=== PATIENT | male | born 1955 | race Caucasian/White ===

== ENCOUNTER 2019-04-16 09:50 | Day surgery (SDC) | payer BC ==
[2019-04-16] VITALS (8 sets, daily range): BP systolic 112–135; BP diastolic 63–84
[~2019-04-16] VITALS: Ht 175.3 cm; Wt 78.0 kg
[~2019-04-16 09:50] MED LIST: AMIO200T27 PO; APIX2.5T PO; ATOR20TA66 PO; CARV-50 PO; CLOP75TA33 PO; ENAL20TA PO; FLO0.4C PO; MAGN400C PO; METF-436 PO; METF-438 PO; POTA-82 PO
[2019-04-16] MEDS ORDERED: fentaNYL/PF 50MCG/1 ML 2ML syringe IV ONE (10:25)
[2019-04-16] MEDS ORDERED: normal saline 1000ml 1,000 ML IV SCH (10:25)
[2019-04-16] MEDS ORDERED: MIDAZolam 1mg/ml 10ml vial IV ONE (10:25)
[2019-04-16] MEDS ORDERED: METF-951 PO (11:27)
[2019-04-16] MEDS ORDERED: AMLO5TAB PO (11:30)
== END 2019-04-16 13:00 | disposition home or self-care (01) ==
LOC: SSTAY O 09:50
PROVIDERS: ATTEND Internal Medicine Interventional Cardiology
DX: I48.0 Paroxysmal atrial fibrillation (principal); I25.10 Atherosclerotic heart disease of native coronary artery without angina pectoris; I10 Essential (primary) hypertension; I25.5 Ischemic cardiomyopathy; E11.59 Type 2 diabetes mellitus with other circulatory complications; I35.1 Nonrheumatic aortic (valve) insufficiency; Z95.5 Presence of coronary angioplasty implant and graft; Z79.01 Long term (current) use of anticoagulants; Z79.899 Other long term (current) drug therapy
CPT/HCPCS: 82948; 92960; 93005; J2250; J3010; J7030

== ENCOUNTER 2023-02-13 10:40 | Day surgery (SDC) | payer BC ==
[2023-02-13] VITALS (10 sets, daily range): BP systolic 113–141; BP diastolic 67–115
[~2023-02-13] VITALS: Ht 175.3 cm; Wt 74.8 kg
[~2023-02-13 10:40] MED LIST changes: -AMIO200T27 PO; +AMLO5TAB PO; +ENAL-79 PO; -ENAL20TA PO; +METF-1157 PO; -METF-436 PO; -METF-438 PO; -POTA-82 PO
[2023-02-13] MEDS ORDERED: normal saline 1,000 ML IV SCH (11:15)
[2023-02-13] MEDS ORDERED: diphenhydrAMINE 25mg capsule PO PRN (11:15)
[2023-02-13] MEDS ORDERED: APIX5TAB3 PO (11:15)
[2023-02-13] MEDS ORDERED: LORazepam 0.5 MG tablet PO PRN (11:15)
[2023-02-13] MEDS ORDERED: BISO10TA16 PO (11:16)
[2023-02-13] MEDS ORDERED: EMPA10TA PO (11:16)
[2023-02-13] MEDS ORDERED: SACU1TAB PO (11:16)
[2023-02-13] MEDS ORDERED: fentaNYL/PF 50MCG/1 ML 2ML syringe ONE (12:17)
[2023-02-13] MEDS ORDERED: LIDOcaine 1% (10mg/ml) 2ml vial ONE (12:17)
[2023-02-13] MEDS ORDERED: verapamil 2.5 mg/ml inj IV ONE (12:17)
[2023-02-13] MEDS ORDERED: midazolam 1 mg/ML 2ml injection ONE (12:17)
[2023-02-13] MEDS ORDERED: iohexol 350MG/ML 100ml bottle IV ONE (12:18)
[2023-02-13] MEDS ORDERED: heparin 1,000 UNITS/NS 500ml 500 ML ONE ×2 (12:18)
[2023-02-13] MEDS ORDERED: heparin 1,000unit/ml 10ml vial 10 ML ONE (12:18)
[2023-02-13] MEDS ORDERED: nitroGLYCERIN-Tridil 50MG/D5W 250 ML IV ONE (12:18)
[2023-02-13] MEDS ORDERED: DOBUTamine-DoBUTrex 500mg/D5W 0 ML IV ONE (13:14)
[2023-02-13] MEDS ORDERED: LIDOcaine 1% 30ml preserv. free vial ONE (13:16)
[2023-02-13] MEDS ORDERED: HYDROcodone/acetaminophen 10/325mg tab PO PRN (14:30)
[2023-02-13] MEDS ORDERED: HYDROcodone/acetaminophen 5mg/325mg tablet PO PRN (14:30)
--- NOTE | 2023-02-13 15:30 | NUR ---
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 Notified credit risk analyst, Dr. Danyelle Eldridge and stroke alert initiated.
--- NOTE | 2023-02-13 16:30 | NUR ---
Discussed neurologist recommendations with Dr. Eldridge and informed him of patient current agitation and wish to go home. Ordered aspirin 325mg now and starting tomorrow restart his Eliquis and (81mg of aspirin daily for 21 days). Follow up with his primary physician about out patient MRI and may be discharged today.
[2023-02-13] MEDS ORDERED: aspirin 325mg tablet PO ONE (16:45)
== END 2023-02-13 17:00 | disposition home or self-care (01) ==
LOC: SSTAY O 10:40
PROVIDERS: ATTEND Student in an Organized Health Care Education/Training Program
DX: R94.39 Abnormal result of other cardiovascular function study (principal); I25.10 Atherosclerotic heart disease of native coronary artery without angina pectoris; I35.0 Nonrheumatic aortic (valve) stenosis; E78.5 Hyperlipidemia, unspecified; R47.81 Slurred speech; E11.9 Type 2 diabetes mellitus without complications; I48.91 Unspecified atrial fibrillation; I50.9 Heart failure, unspecified; I11.0 Hypertensive heart disease with heart failure
CPT/HCPCS: 70450; 82948; 93005; 93458; 99152; 99153; C1760; C1894; J1644; J2250; J3010; J3490; J7030; Q0163; Q9967; A6258; C1751; J1250

== ENCOUNTER 2024-05-07 08:56 | Day surgery (SDC) | payer BC ==
[~2024-05-07] VITALS: Ht 175.3 cm; Wt 74.4 kg
[2024-05-07] VITALS (17 sets, daily range): BP systolic 107–156; BP diastolic 54–107; PULSE 54–92; RESP 10–12; TEMP 97.6; O2SAT 95–100
[~2024-05-07 08:56] MED LIST changes: -AMLO5TAB PO; -APIX2.5T PO; +APIX5TAB3 PO; +BISO10TA16 PO; -CARV-50 PO; -CLOP75TA33 PO; +EMPA10TA PO; -ENAL-79 PO; +SACU1TAB PO
[2024-05-07] MEDS ORDERED: nitroGLYCERIN 0.4mg SUBLingual tab SL PRN ×2 (09:35)
[2024-05-07] MEDS ORDERED: metoprolol tartrate 1mg/ml inj IV PRN ×2 (09:35)
[2024-05-07] MEDS ORDERED: normal saline 500ml IV soln 500 ML IV SCH ×2 (09:35)
[2024-05-07] MEDS ORDERED: DOBUTamine-DoBUTrex 500mg/D5W 250 ML IV SCH (09:35)
[2024-05-07] MEDS ORDERED: atropine 0.1mg/ml 10ml syringe IV PRN ×2 (09:35)
[2024-05-07] MEDS: normal saline 1000ml 1,000 ML IV SCH (09:55)
[2024-05-07] MEDS: DOBUTamine-DoBUTrex 500mg/D5W 250 ML IV ONE (12:55)
== END 2024-05-07 14:30 | disposition home or self-care (01) ==
LOC: SSTAY O 08:56
PROVIDERS: ATTEND Student in an Organized Health Care Education/Training Program
DX: I35.0 Nonrheumatic aortic (valve) stenosis (principal); I48.91 Unspecified atrial fibrillation; I25.10 Atherosclerotic heart disease of native coronary artery without angina pectoris; I25.2 Old myocardial infarction; I11.0 Hypertensive heart disease with heart failure; E11.9 Type 2 diabetes mellitus without complications; I73.9 Peripheral vascular disease, unspecified; I50.9 Heart failure, unspecified; Z79.01 Long term (current) use of anticoagulants; Z79.84 Long term (current) use of oral hypoglycemic drugs; Z79.899 Other long term (current) drug therapy
CPT/HCPCS: 93351; J1250; J7030

== ENCOUNTER 2024-05-22 10:56 | Outpatient (CLI) | payer BC ==
[~2024-05-22 10:56] MED LIST changes: +IODIXANOL 320 MG/ML INFUS..BTL 100ML IV ONE
[2024-05-22 11:43] LABS: BASOPHILS # (AUTO) 0.1 X10'3 (0-0.2); BASOPHILS % (AUTO) 0.6 % (0-1); EOSINOPHILS # (AUTO) 0.2 X10'3 (0-0.9); EOSINOPHILS % (AUTO) 2.5 % (0-6); HEMATOCRIT 54.1 % (42.0-52.0); LYMPHOCYTES # (AUTO) 1.8 X10'3 (1.1-4.8); LYMPHOCYTES % (AUTO) 21.4 % (21-51); MEAN CORPUSCULAR HEMOGLOBIN 31.8 PG (27.0-31.0); MEAN CORPUSCULAR HGB CONC 34.2 g/dL (33.0-36.5); MEAN CORPUSCULAR VOLUME 93.2 FL (78-98); MONOCYTES # (AUTO) 0.7 X10'3 (0-0.9); MONOCYTES % (AUTO) 7.9 % (2-12); NEUTROPHILS # (AUTO) 5.8 X10'3 (1.8-7.7); NEUTROPHILS % (AUTO) 67.6 % (42-75); PLATELET COUNT 195 X10'3 (140-440); RED CELL DISTRIBUTION WIDTH 14.2 % (11.5-14.5); WHITE BLOOD COUNT 8.6 X10'3 (4.5-11.0)
[2024-05-22 11:46] LABS: HEMOGLOBIN 18.5 g/dl (14.0-17.9)
[2024-05-22 12:16] LABS: APTT 30 SECONDS (22-32); INR 1.1 INR; LARGE PLATELETS FEW; PLATELET ESTIMATE NORMAL; PROTHROMBIN TIME 11.7 SECONDS (9.0-12.0)
[2024-05-22 12:31] LABS: ALANINE AMINOTRANSFERASE 93 U/L (12-78); ALBUMIN 3.7 G/DL (3.4-5.0); ALBUMIN/GLOBULIN RATIO 1.1 (1.1-1.5); ALKALINE PHOSPHATASE 111 IU/L (46-116); ANION GAP 9 (8-16); ASPARTATE AMINO TRANSFERASE 48 U/L (10-37); BILIRUBIN,TOTAL 0.9 MG/DL (0.1-1.0); BLOOD UREA NITROGEN 21 MG/DL (7-18); BUN/CREATININE RATIO 16.5 (10.0-20.0); CALCIUM 9.2 MG/DL (8.5-10.1); CHLORIDE 105 MMOL/L (99-107); CREATININE 1.27 MG/DL (0.60-1.10); GLUCOSE 221 MG/DL (70-104); POTASSIUM 4.4 MMOL/L (3.5-5.1); PRO BRAIN NATRIURETIC PEPTIDE 1010 PG/ML (0-125); SODIUM 140 MMOL/L (135-145); TOTAL CARBON DIOXIDE 25.7 MMOL/L (24-32); eGFR 56 ML/MIN
== END 2024-05-22 23:59 | disposition home or self-care (01) ==
LOC: RAD 10:56
PROVIDERS: ATTEND Internal Medicine Cardiovascular Disease
DX: K76.0 Fatty (change of) liver, not elsewhere classified (principal); I35.0 Nonrheumatic aortic (valve) stenosis; R06.02 Shortness of breath; I65.29 Occlusion and stenosis of unspecified carotid artery; K40.90 Unilateral inguinal hernia, without obstruction or gangrene, not specified as recurrent; M47.815 Spondylosis without myelopathy or radiculopathy, thoracolumbar region; I70.0 Atherosclerosis of aorta; N32.3 Diverticulum of bladder; Z95.4 Presence of other heart-valve replacement
CPT/HCPCS: 36415; 71046; 71275; 74174; 75572; 80053; 83880; 85008; 85025; 85610; 85730; Q9967

== ENCOUNTER 2024-07-03 05:34 | Inpatient (IN) | payer BC, MEDICARE ==
[2024-06-26 14:33] LABS: BILIRUBIN,URINE NEGATIVE (Neg); CLARITY,URINE CLEAR (Clear); COLOR,URINE YELLOW (Yellow); GLUCOSE, URINE >=1000 mg/dl (Neg); KETONES,URINE NEGATIVE (Neg); LEUKOCYTE ESTERASE ,URINE NEGATIVE (Neg); NITRITES, URINE NEGATIVE (Neg); OCCULT BLOOD,URINE NEGATIVE (Neg); PH,URINE 5.5 (4.8-8.0); PROTEIN,URINE NEGATIVE (Neg); UROBILINOGEN,URINE 0.2 E.U/dL (0.2-1.0)
[2024-06-26 14:34] LABS: UA COLLECTION TYPE VOIDED
[2024-06-26 14:42] LABS: SQUAMOUS EPITHELIAL CELL,UR FEW /LPF (FEW)
[2024-06-26 14:43] LABS: BACTERIA,URINE FEW /HPF (Neg); RBC,URINE NONE SEEN /HPF (0-2); WBC,URINE 0-4 /HPF (0-4)
[2024-06-26 15:07] LABS: BASOPHILS % (AUTO) 0.6 % (0-1); MONOCYTES # (AUTO) 0.8 X10'3 (0-0.9); NEUTROPHILS # (AUTO) 4.8 X10'3 (1.8-7.7)
[2024-06-26 15:09] LABS: EOSINOPHILS # (AUTO) 0.3 X10'3 (0-0.9); EOSINOPHILS % (AUTO) 4.3 % (0-6); LYMPHOCYTES % (AUTO) 25.5 % (21-51); MEAN CORPUSCULAR HEMOGLOBIN 31.6 PG (27.0-31.0); MEAN CORPUSCULAR HGB CONC 33.5 g/dL (33.0-36.5); MEAN CORPUSCULAR VOLUME 94.4 FL (78-98); MEAN PLATELET VOLUME 11.2 FL (7.4-10.4); NEUTROPHILS % (AUTO) 59.6 % (42-75); PRE OP PLATELET COUNT 191 X10'3 (140-440); RED BLOOD COUNT 5.93 X10'6 (4.70-6.10); RED CELL DISTRIBUTION WIDTH 14.4 % (11.5-14.5)
[2024-06-26 15:20] LABS: PRE OP INR 1.1 INR; PRE OP PROTIME 11.9 SECONDS (9.0-12.0)
[2024-06-26 15:25] LABS: ALBUMIN 3.7 G/DL (3.4-5.0); ALBUMIN/GLOBULIN RATIO 1.1 (1.1-1.5); ALKALINE PHOSPHATASE 111 IU/L (46-116); BLOOD UREA NITROGEN 25 MG/DL (7-18); BUN/CREATININE RATIO 18.2 (10.0-20.0); CHLORIDE 104 MMOL/L (99-107); CREATININE 1.37 MG/DL (0.60-1.10); PRE OP ALT 36 U/L (30-65); PRE OP ANION GAP 10 (8-16); PRE OP AST 30 U/L (10-37); PRE OP GLUCOSE 164 MG/DL (70-104); PRE OP POTASSIUM 4.2 MMOL/L (3.4-5.1); PRE OP SODIUM 142 MMOL/L (135-145); TOTAL CARBON DIOXIDE 28.1 MMOL/L (24-32); TOTAL PROTEIN 7.2 G/DL (6.4-8.2); eGFR 52 ML/MIN
[2024-06-26 15:29] LABS: PRE OP HEMOGLOBIN 18.8 g/dL (14.0-17.9)
[2024-06-26 17:05] LABS: HEMOGLOBIN A1C 8.5 % (4.5-6.2)
[2024-07-01 09:10] LABS: ABG BASE EXCESS -6.5 mmol/L (-2.0-2.0); ABG HCO3 16.7 mmol/L (22.0-26.0); ABG OXYGEN SATURATION 96.4 % (92-98.5); ABG PCO2 (T) 29.3 mmHg (35.0-48.0); ABG PH (T) 7.373 (7.340-7.440); ABG PO2 (T) 91.8 mmHg (75.0-100.0); ALLEN'S TEST POSITIVE; FHHb 3.6 % (0.0-5.0); FMetHb 0.5 % (0.0-1.5); FO2Hb 95.9 % (94-97); MODE ROOM AIR; TOTAL HEMOGLOBIN 20.3 G/dl (14.0-17.9)
[2024-07-03] VITALS (25 sets, daily range): BP systolic 83–131; BP diastolic 40–69; PULSE 68–97; RESP 12–23; TEMP 97; O2SAT 91–99
[~2024-07-03] VITALS: Ht 167.6 cm; Wt 75.4 kg
[2024-07-03] MEDS: Insulin Reg/NS 100units/100mL 100 ML IV SCH (05:30)
[~2024-07-03 05:34] MED LIST changes: -IODIXANOL 320 MG/ML INFUS..BTL 100ML IV ONE; +Insulin Reg/NS 100units/100mL 100 ML IV SCH; +LORazepam 2 mg/ml vial IV PRN; +dextrose 50%-water 50ml dispensing syringe IV PRN; +insulin glargine (Lantus) pen - multi-dose SQ PRN
[2024-07-03] MEDS: famotidine 20mg tablet PO ONE (06:19)
[2024-07-03] MEDS: cefazolin 2gm/D5W 100mL 100 ML IV ONE (06:20)
[2024-07-03] MEDS: ringers solution, lacted 1,000 ML IV SCH (06:20)
[2024-07-03] MEDS: vancomycin/NS 1 GM in NS 250 ML IV ONE (06:21)
[2024-07-03] MEDS: mupirocin 2% nasal ointment 1gm UD NS ONE (06:22)
[2024-07-03] MEDS: metoprolol tartrate 12.5mg (1/2 tablet) PO ONE (06:24)
[2024-07-03 07:31] LABS: ABG HCO3 24.5 mmol/L (22.0-26.0); ABG PCO2 (T) 38.9 mmHg (35.0-48.0); ABG PH (T) 7.415 (7.340-7.440); ABG PO2 (T) 78.6 mmHg (75.0-100.0); ALLEN'S TEST POSITIVE; FCOHb 0.3 % (0.5-1.5); FMetHb 0.1 % (0.0-1.5); FO2Hb 95.6 % (94-97); MODE ROOM AIR; PATIENT TEMPERATURE 36.6; TOTAL HEMOGLOBIN 17.5 G/dl (14.0-17.9)
[2024-07-03] MEDS ORDERED: isoflurane 100ml inhalation liquid IH ONE (08:02)
[2024-07-03] MEDS ORDERED: SUfentanil 50mcg/ml 1ml amp IV ONE (08:10)
[2024-07-03] MEDS ORDERED: midazolam 1 mg/ML 2ml injection ONE (08:10)
[2024-07-03] MEDS ORDERED: propofol inj 20 ML IV ONE (08:14)
[2024-07-03] MEDS ORDERED: rocuronium 10mg/ml inj IV ONE (08:14)
[2024-07-03 08:51] LABS: ABG BASE EXCESS -2.5 mmol/L (-2.0-2.0); ABG HCO3 20.2 mmol/L (22.0-26.0); ABG OXYGEN SATURATION 98.9 % (92-98.5); ABG PH 7.446 (7.340-7.440); ABG PO2 163.2 mmHg (75.0-100.0); CL (ABG) 107 mmol/L (99-107); FCOHb 0.3 % (0.5-1.5); FHHb 1.1 % (0.0-5.0); FO2Hb 98.6 % (94-97); GLUCOSE (ABG) 123 mg/dl (70-104); IONIZED CA (ABG) 1.15 mmol/L (1.10-1.30); K (ABG) 4.1 mmol/L (3.5-5.1); TOTAL HEMOGLOBIN 16.1 G/dl (14.0-17.9)
[2024-07-03] MEDS ORDERED: albumin (Human) 5% 250ml 250 ML IV ONE (09:20)
[2024-07-03] MEDS: vancomycin 1,000mg inj IVT ONE (09:30)
[2024-07-03 09:41] LABS: ABG BASE EXCESS -2.7 mmol/L (-2.0-2.0); ABG HCO3 21.3 mmol/L (22.0-26.0); ABG OXYGEN SATURATION 99.1 % (92-98.5); ABG PCO2 34.1 mmHg (35.0-48.0); ABG PH 7.413 (7.340-7.440); CL (ABG) 102 mmol/L (99-107); FCOHb 0.2 % (0.5-1.5); FHHb 0.9 % (0.0-5.0); FMetHb 0.3 % (0.0-1.5); FO2Hb 98.6 % (94-97); GLUCOSE (ABG) 122 mg/dl (70-104); IONIZED CA (ABG) 0.94 mmol/L (1.10-1.30); K (ABG) 3.7 mmol/L (3.5-5.1); TOTAL HEMOGLOBIN 11.2 G/dl (14.0-17.9)
[2024-07-03 09:44] LABS: ACT @ 1.70 U 283 SEC (193-297); ACT @ 2.84 U 398 SEC (260-420); BASELINE ACT 148 SEC (101-148); PATIENT WEIGHT 64.0k KG
[2024-07-03 10:09] LABS: ABG BASE EXCESS VENOUS 0.5 mmol/L (-2.0 - 2.0); ABG HCO3 VENOUS 25.1 mmol/L (21.0-28.0); ABG OXYGEN SATURATION VENOUS 85.7 % (75 - 99 %); ABG PCO2 VENOUS 40.4 mmHg (41.0-54.0); ABG PH (VENOUS) 7.412 (7.310-7.450); ABG PO2 VENOUS 50.3 mmHg (25.0-35.0); CL (ABG) 103 mmol/L (99-107); FCOHb VENOUS 0.3 % (0.0-3.9); FHHb VENOUS 14.2 %; FMetHb VENOUS 0.3 % (0.0-0.5); FO2Hb VENOUS 85.2 %; GLUCOSE (ABG) 116 mg/dl (70-104); IONIZED CA (ABG) 0.97 mmol/L (1.10-1.30); K (ABG) 3.8 mmol/L (3.5-5.1); TOTAL HEMOGLOBIN 11.4 G/dl (14.0-17.9)
[2024-07-03] MEDS ORDERED: albuterol 2.5 MG/3 ML nebule NEB PRN (10:15)
[2024-07-03 10:36] LABS: ABG BASE EXCESS -1.2 mmol/L (-2.0-2.0); ABG HCO3 21.9 mmol/L (22.0-26.0); ABG OXYGEN SATURATION 98.9 % (92-98.5); ABG PCO2 30.8 mmHg (35.0-48.0); ABG PH 7.469 (7.340-7.440); ABG PO2 295.6 mmHg (75.0-100.0); CL (ABG) 104 mmol/L (99-107); FCOHb 0.2 % (0.5-1.5); FHHb 1.1 % (0.0-5.0); FMetHb 0.3 % (0.0-1.5); FO2Hb 98.4 % (94-97); GLUCOSE (ABG) 102 mg/dl (70-104); IONIZED CA (ABG) 0.97 mmol/L (1.10-1.30); K (ABG) 4.6 mmol/L (3.5-5.1); TOTAL HEMOGLOBIN 10.6 G/dl (14.0-17.9)
[2024-07-03 11:15] LABS: ABG BASE EXCESS 1.5 mmol/L (-2.0-2.0); ABG HCO3 24.7 mmol/L (22.0-26.0); ABG OXYGEN SATURATION 98.7 % (92-98.5); ABG PCO2 33.8 mmHg (35.0-48.0); ABG PH 7.482 (7.340-7.440); ABG PO2 234.5 mmHg (75.0-100.0); CL (ABG) 104 mmol/L (99-107); FCOHb 0.2 % (0.5-1.5); FHHb 1.3 % (0.0-5.0); FMetHb 0.3 % (0.0-1.5); FO2Hb 98.2 % (94-97); GLUCOSE (ABG) 96 mg/dl (70-104); IONIZED CA (ABG) 0.93 mmol/L (1.10-1.30); K (ABG) 4.2 mmol/L (3.5-5.1); TOTAL HEMOGLOBIN 10.6 G/dl (14.0-17.9)
[2024-07-03 12:15] LABS: ABG BASE EXCESS -0.4 mmol/L (-2.0-2.0); ABG HCO3 24.8 mmol/L (22.0-26.0); ABG OXYGEN SATURATION 88.7 % (92-98.5); ABG PCO2 42.8 mmHg (35.0-48.0); ABG PH 7.381 (7.340-7.440); ABG PO2 59.1 mmHg (75.0-100.0); CL (ABG) 104 mmol/L (99-107); FCOHb 0.3 % (0.5-1.5); FHHb 11.3 % (0.0-5.0); FMetHb 0.1 % (0.0-1.5); FO2Hb 88.3 % (94-97); GLUCOSE (ABG) 91 mg/dl (70-104); IONIZED CA (ABG) 1.15 mmol/L (1.10-1.30); K (ABG) 3.7 mmol/L (3.5-5.1); TOTAL HEMOGLOBIN 10.9 G/dl (14.0-17.9)
[2024-07-03 12:18] LABS: ACTIVATED CLOTTING TIME 132 SEC (101-148)
[2024-07-03] MEDS ORDERED: niCARDipine-NS 40mg/200ml IVPB 200 ML IV PRN (12:30)
[2024-07-03] MEDS ORDERED: nitroGLYCERIN-Tridil 50MG/D5W 250 ML IV PRN (12:30)
[2024-07-03] MEDS ORDERED: Insulin Reg/NS 100units/100mL 100 ML IV SCH (12:30)
[2024-07-03] MEDS ORDERED: sodium phosphate inj. 30 MMOL in dextrose 5%-water 250 ML IV PRN (12:30)
[2024-07-03] MEDS ORDERED: metoclopramide 5 mg/ml inj IV PRN (12:30)
[2024-07-03] MEDS ORDERED: magnesium hydroxide 30ml (MOM) UD suspension PO PRN (12:30)
[2024-07-03] MEDS ORDERED: potassium Cl 40MEQ/1/2NS 520ml 520 ML IV PRN (12:30)
[2024-07-03] MEDS ORDERED: dextrose 50%-water 50ml dispensing syringe IV PRN (12:30)
[2024-07-03] MEDS ORDERED: insulin glargine (Lantus) pen - multi-dose SQ PRN (12:30)
[2024-07-03] MEDS ORDERED: acetaminophen 325mg tablet PO PRN ×2 (12:30)
[2024-07-03] MEDS ORDERED: ondansetron/PF 4mg/2ml inj IV PRN (12:30)
[2024-07-03] MEDS ORDERED: bisacodyl 10mg suppository rectal RC PRN (12:30)
[2024-07-03] MEDS ORDERED: HYDROcodone/acetaminophen 10/325mg tab PO PRN (12:30)
[2024-07-03] MEDS ORDERED: potassium CL 10mEq/100ml bag 100 ML IV PRN (12:30)
[2024-07-03] MEDS ORDERED: potassium Cl 20 mEq SR tablet PO PRN (12:30)
[2024-07-03] MEDS ORDERED: Neutra Phos packet PO PRN (12:30)
[2024-07-03] MEDS ORDERED: mineral oil 133ml enema RC PRN (12:30)
[2024-07-03] MEDS: albumin (Human) 5% 250ml 250 ML IV PRN ×2 (13:05→16:42)
[2024-07-03 13:14] LABS: ABG BASE EXCESS -2.2 mmol/L (-2.0-2.0); ABG HCO3 19.3 mmol/L (22.0-26.0); ABG OXYGEN SATURATION 99.3 % (92-98.5); ABG PCO2 (T) 24.8 mmHg (35.0-48.0); ABG PH (T) 7.508 (7.340-7.440); ABG PO2 (T) 183.4 mmHg (75.0-100.0); FCOHb 0.2 % (0.5-1.5); FHHb 0.7 % (0.0-5.0); FMetHb 0.3 % (0.0-1.5); FO2Hb 98.8 % (94-97); MODE VENT - SIMV; PATIENT TEMPERATURE 36.7; PEEP 5 cm H2O; RESPIRATORY RATE 12 b/min; TIDAL VOLUME 500 mL; TOTAL HEMOGLOBIN 13.8 G/dl (14.0-17.9)
[2024-07-03 13:52] LABS: BASOPHILS % (AUTO) 0.2 % (0-1); EOSINOPHILS # (AUTO) 0.1 X10'3 (0-0.9); EOSINOPHILS % (AUTO) 0.4 % (0-6); HEMATOCRIT 39.1 % (42.0-52.0); HEMOGLOBIN 13.2 g/dl (14.0-17.9); LYMPHOCYTES # (AUTO) 1.2 X10'3 (1.1-4.8); LYMPHOCYTES % (AUTO) 9.5 % (21-51); MEAN CORPUSCULAR HEMOGLOBIN 31.1 PG (27.0-31.0); MEAN CORPUSCULAR HGB CONC 33.7 g/dL (33.0-36.5); MEAN CORPUSCULAR VOLUME 92.1 FL (78-98); MEAN PLATELET VOLUME 10.5 FL (7.4-10.4); MONOCYTES % (AUTO) 7.5 % (2-12); NEUTROPHILS # (AUTO) 10.8 X10'3 (1.8-7.7); NEUTROPHILS % (AUTO) 82.4 % (42-75); PLATELET COUNT 108 X10'3 (140-440); RED BLOOD COUNT 4.25 X10'6 (4.70-6.10); RED CELL DISTRIBUTION WIDTH 14.1 % (11.5-14.5); WHITE BLOOD COUNT 13.1 X10'3 (4.5-11.0)
[2024-07-03] MEDS: ceFAZolin 1000mg inj IR ONE (14:03)
[2024-07-03 14:05] LABS: APTT 34 SECONDS (22-32); INR 1.3 INR
[2024-07-03 14:06] LABS: ALANINE AMINOTRANSFERASE 23 U/L (12-78); ALBUMIN/GLOBULIN RATIO 2.3 (1.1-1.5); ALKALINE PHOSPHATASE 41 IU/L (46-116); ANION GAP 8 (8-16); ASPARTATE AMINO TRANSFERASE 42 U/L (10-37); BILIRUBIN,TOTAL 1.2 MG/DL (0.1-1.0); BLOOD UREA NITROGEN 17 MG/DL (7-18); CALCIUM 7.8 MG/DL (8.5-10.1); CHLORIDE 110 MMOL/L (99-107); GLUCOSE 113 MG/DL (70-104); MAGNESIUM 2.9 MG/DL (1.5-2.4); PHOSPHORUS 1.8 MG/DL (2.3-4.5); SODIUM 143 MMOL/L (135-145); TOTAL CARBON DIOXIDE 25.5 MMOL/L (24-32); TOTAL PROTEIN 4.3 G/DL (6.4-8.2); eCRCL 63 ML/MIN; eGFR 74 ML/MIN
[2024-07-03] MEDS: LORazepam 2 mg/ml vial ONE (14:20)
[2024-07-03] MEDS: vancomycin 1,000mg inj ONE (14:20)
[2024-07-03] MEDS: heparin 10,000 units/1 ML INJ ONE (14:20)
[2024-07-03] MEDS: DOCUMENT DATE & TIME OF BETA-BLOCKER PO ONE (14:20)
[2024-07-03] MEDS: ceFAZolin 1000mg inj ONE (14:20)
[2024-07-03] MEDS: BUPIVAcaine 0.5% inj/PF 30 ML ONE (14:20)
[2024-07-03] MEDS: epiNEPHrine 1 mg/ml inj ONE (14:20)
[2024-07-03 14:21] LABS: POTASSIUM 3.5 MMOL/L (3.5-5.1)
[2024-07-03] MEDS: sodium chloride 0.45% 1,000 ML IV SCH (14:23)
[2024-07-03] MEDS: NORepinephrine 8mg/ 250ml NS 250 ML IV SCH (14:23)
[2024-07-03] MEDS: DOBUTamine-DoBUTrex 500mg/D5W 250 ML IV SCH (14:24)
[2024-07-03] MEDS: potassium Cl 40MEQ/270ML bag 250 ML IV PRN (15:12)
[2024-07-03] MEDS: sodium phosphate inj. 15 MMOL in dextrose 5%-water 250 ML IV PRN (15:12)
[2024-07-03] MEDS: ceFAZolin/D5W- 1GM premix 50 ML IV SCH (16:35)
[2024-07-03] MEDS: amiodarone/D5 360MG/200ML BAG 200 ML IV SCH (16:36)
[2024-07-03] MEDS: morphine 4 MG/ML inj SYRINge IV PRN (17:11)
[2024-07-03 18:43] LABS: BASOPHILS % (AUTO) 0.1 % (0-1); EOSINOPHILS % (AUTO) 0 % (0-6); HEMATOCRIT 31.7 % (42.0-52.0); HEMOGLOBIN 10.6 g/dl (14.0-17.9); LYMPHOCYTES # (AUTO) 0.6 X10'3 (1.1-4.8); LYMPHOCYTES % (AUTO) 5.8 % (21-51); MEAN CORPUSCULAR HEMOGLOBIN 30.7 PG (27.0-31.0); MEAN CORPUSCULAR HGB CONC 33.4 g/dL (33.0-36.5); MEAN CORPUSCULAR VOLUME 92.1 FL (78-98); MEAN PLATELET VOLUME 10.8 FL (7.4-10.4); MONOCYTES # (AUTO) 0.5 X10'3 (0-0.9); MONOCYTES % (AUTO) 4.8 % (2-12); NEUTROPHILS # (AUTO) 9.2 X10'3 (1.8-7.7); NEUTROPHILS % (AUTO) 89.3 % (42-75); PLATELET COUNT 89 X10'3 (140-440); RED BLOOD COUNT 3.44 X10'6 (4.70-6.10); RED CELL DISTRIBUTION WIDTH 14.1 % (11.5-14.5); WHITE BLOOD COUNT 10.3 X10'3 (4.5-11.0)
[2024-07-03 18:56] LABS: ALBUMIN 3.3 G/DL (3.4-5.0); ANION GAP 14 (8-16); BLOOD UREA NITROGEN 18 MG/DL (7-18); BUN/CREATININE RATIO 15.4 (10.0-20.0); CALCIUM 7.6 MG/DL (8.5-10.1); CHLORIDE 110 MMOL/L (99-107); CREATININE 1.17 MG/DL (0.60-1.10); GLUCOSE 198 MG/DL (70-104); MAGNESIUM 2.3 MG/DL (1.5-2.4); PHOSPHORUS 4.5 MG/DL (2.3-4.5); POTASSIUM 3.8 MMOL/L (3.5-5.1); SODIUM 145 MMOL/L (135-145); TOTAL CARBON DIOXIDE 21.4 MMOL/L (24-32); eCRCL 54 ML/MIN; eGFR 62 ML/MIN
[2024-07-03] MEDS: morphine 2 MG/ML inj. syringe IV PRN (20:06)
[2024-07-03] MEDS: potassium Cl 20mEq/100mL bag 100 ML IV PRN (20:07)
[2024-07-03] MEDS: mupirocin 2% nasal ointment 1gm UD NS SCH (20:07)
[2024-07-03] MEDS: vancomycin/NS 1 GM ADD-VANTAGE 250 ML IV SCH (20:07)
[2024-07-03] MEDS: sennosides/docusate sodium tablet PO SCH (20:07)
[2024-07-03] MEDS: atorvastatin 10mg tablet PO SCH (20:13)
[2024-07-03] MEDS ORDERED: SODIUM CHLORIDE IV SCH (22:20)
[2024-07-03] MEDS ORDERED: DEXMEDETOMIDINE IV SCH (22:20)
[2024-07-04] VITALS (26 sets, daily range): BP systolic 94–133; BP diastolic 54–79; PULSE 71–101; RESP 14–26; O2SAT 90–100
[2024-07-04] MEDS: dexmedetomidin/NS 400mcg/100ml 100 ML IV SCH (00:48)
[2024-07-04 02:15] LABS: BASOPHILS % (AUTO) 0.2 % (0-1); EOSINOPHILS % (AUTO) 0 % (0-6); HEMATOCRIT 31.1 % (42.0-52.0); HEMOGLOBIN 10.5 g/dl (14.0-17.9); LYMPHOCYTES # (AUTO) 0.6 X10'3 (1.1-4.8); LYMPHOCYTES % (AUTO) 5.1 % (21-51); MEAN CORPUSCULAR HEMOGLOBIN 30.9 PG (27.0-31.0); MEAN CORPUSCULAR HGB CONC 33.8 g/dL (33.0-36.5); MEAN CORPUSCULAR VOLUME 91.4 FL (78-98); MEAN PLATELET VOLUME 10.8 FL (7.4-10.4); MONOCYTES # (AUTO) 0.6 X10'3 (0-0.9); MONOCYTES % (AUTO) 4.9 % (2-12); NEUTROPHILS # (AUTO) 10.1 X10'3 (1.8-7.7); NEUTROPHILS % (AUTO) 89.8 % (42-75); PLATELET COUNT 90 X10'3 (140-440); RED CELL DISTRIBUTION WIDTH 14.4 % (11.5-14.5); WHITE BLOOD COUNT 11.2 X10'3 (4.5-11.0)
[2024-07-04 02:31] LABS: ALANINE AMINOTRANSFERASE 24 U/L (12-78); ALBUMIN 3.5 G/DL (3.4-5.0); ALBUMIN/GLOBULIN RATIO 2.7 (1.1-1.5); ALKALINE PHOSPHATASE 29 IU/L (46-116); ANION GAP 12 (8-16); ASPARTATE AMINO TRANSFERASE 49 U/L (10-37); BILIRUBIN,TOTAL 0.9 MG/DL (0.1-1.0); BLOOD UREA NITROGEN 14 MG/DL (7-18); BUN/CREATININE RATIO 11.6 (10.0-20.0); CALCIUM 7.8 MG/DL (8.5-10.1); CHLORIDE 112 MMOL/L (99-107); CREATININE 1.21 MG/DL (0.60-1.10); GLUCOSE 138 MG/DL (70-104); PHOSPHORUS 3.1 MG/DL (2.3-4.5); POTASSIUM 4.2 MMOL/L (3.5-5.1); SODIUM 146 MMOL/L (135-145); TOTAL CARBON DIOXIDE 22.3 MMOL/L (24-32); TOTAL PROTEIN 4.8 G/DL (6.4-8.2); eCRCL 52 ML/MIN; eGFR 59 ML/MIN
[2024-07-04 03:30] LABS: LARGE PLATELETS FEW; PLATELET ESTIMATE DECREASED
[2024-07-04] MEDS: magnesium sulf-water 4G/100mL 100 ML IV PRN (03:32)
[2024-07-04] MEDS: aspirin 81mg tab.chew PO SCH (09:16)
[2024-07-04] MEDS: metoprolol tartrate 12.5mg (1/2 tablet) PO SCH (09:16)
[2024-07-04] MEDS: HYDROcodone/acetaminophen 10/325mg tab PO PRN (09:36)
[2024-07-04] MEDS ORDERED: glucagon, human recombinant 1mg kit SUBCUT PRN (13:20)
[2024-07-04] MEDS ORDERED: dextrose 50%-water 50ml dispensing syringe IV PRN ×2 (13:20)
[2024-07-04] MEDS ORDERED: DEXTROSE 15 GM of carb/4 tabs (each vial/BOTTLE has 4 tablets) PO PRN ×2 (13:20)
[2024-07-04] MEDS ORDERED: furosemide 20 MG/2 ML vial IV SCH (16:00)
[2024-07-04] MEDS: albumin (Human) 5% 250ml 250 ML IV ONE (16:45)
[2024-07-04] MEDS: INSULIN LISPRO 100 UNIT/ML INSULN.PEN MULTI-DOSE SQ SCH (17:42)
[2024-07-04] MEDS: insulin glargine (Lantus) pen - multi-dose SQ SCH (21:00)
[2024-07-05] VITALS (19 sets, daily range): BP systolic 99–142; BP diastolic 50–90; PULSE 61–92; RESP 13–24; TEMP 97.4–97.8; O2SAT 92–96
[2024-07-05 03:48] LABS: BASOPHILS % (AUTO) 0.1 % (0-1); EOSINOPHILS % (AUTO) 0 % (0-6); HEMATOCRIT 31.2 % (42.0-52.0); HEMOGLOBIN 10.4 g/dl (14.0-17.9); LYMPHOCYTES # (AUTO) 0.6 X10'3 (1.1-4.8); LYMPHOCYTES % (AUTO) 3.2 % (21-51); MEAN CORPUSCULAR HEMOGLOBIN 30.8 PG (27.0-31.0); MEAN CORPUSCULAR HGB CONC 33.4 g/dL (33.0-36.5); MEAN CORPUSCULAR VOLUME 92.2 FL (78-98); MEAN PLATELET VOLUME 11.7 FL (7.4-10.4); MONOCYTES # (AUTO) 1.3 X10'3 (0-0.9); MONOCYTES % (AUTO) 7.5 % (2-12); NEUTROPHILS # (AUTO) 15.9 X10'3 (1.8-7.7); NEUTROPHILS % (AUTO) 89.2 % (42-75); PLATELET COUNT 99 X10'3 (140-440); RED BLOOD COUNT 3.39 X10'6 (4.70-6.10); RED CELL DISTRIBUTION WIDTH 14.7 % (11.5-14.5); WHITE BLOOD COUNT 17.9 X10'3 (4.5-11.0)
[2024-07-05 04:06] LABS: ALBUMIN 3.3 G/DL (3.4-5.0); ANION GAP 7 (8-16); BLOOD UREA NITROGEN 22 MG/DL (7-18); BUN/CREATININE RATIO 18.3 (10.0-20.0); CHLORIDE 106 MMOL/L (99-107); GLUCOSE 163 MG/DL (70-104); MAGNESIUM 2.3 MG/DL (1.5-2.4); PHOSPHORUS 4.3 MG/DL (2.3-4.5); POTASSIUM 4.7 MMOL/L (3.5-5.1); SODIUM 137 MMOL/L (135-145); TOTAL CARBON DIOXIDE 24.4 MMOL/L (24-32); eCRCL 52 ML/MIN; eGFR 60 ML/MIN
[2024-07-05] MEDS: magnesium sulf-water 2g/50mL 50 ML IV PRN (04:18)
[2024-07-05] MEDS: pantoprazole 40mg Tablet.DR PO SCH (09:19)
[2024-07-05] MEDS: furosemide 40mg/4ml inj IV ONE (11:15)
[2024-07-05] MEDS: heparin, porcine 5000 units/ml vial SQ SCH (16:53)
[2024-07-05] MEDS: amiodarone 200mg tablet PO SCH (21:17)
[2024-07-06] VITALS (7 sets, daily range): BP systolic 111–135; BP diastolic 71–92; PULSE 67–85; RESP 12–24; TEMP 97.2–97.8; O2SAT 92–96
[2024-07-06 07:57] LABS: BASOPHILS % (AUTO) 0.1 % (0-1); EOSINOPHILS % (AUTO) 0.1 % (0-6); HEMATOCRIT 34.3 % (42.0-52.0); HEMOGLOBIN 11.6 g/dl (14.0-17.9); LYMPHOCYTES % (AUTO) 7.4 % (21-51); MEAN CORPUSCULAR HEMOGLOBIN 31.6 PG (27.0-31.0); MEAN CORPUSCULAR HGB CONC 33.7 g/dL (33.0-36.5); MEAN CORPUSCULAR VOLUME 93.9 FL (78-98); MEAN PLATELET VOLUME 11.8 FL (7.4-10.4); MONOCYTES # (AUTO) 1.3 X10'3 (0-0.9); MONOCYTES % (AUTO) 9.7 % (2-12); NEUTROPHILS # (AUTO) 10.7 X10'3 (1.8-7.7); NEUTROPHILS % (AUTO) 82.7 % (42-75); PLATELET COUNT 99 X10'3 (140-440); RED BLOOD COUNT 3.65 X10'6 (4.70-6.10); RED CELL DISTRIBUTION WIDTH 14.4 % (11.5-14.5)
[2024-07-06 08:34] LABS: ALBUMIN 3.1 G/DL (3.4-5.0); ANION GAP 6 (8-16); BLOOD UREA NITROGEN 25 MG/DL (7-18); BUN/CREATININE RATIO 22.5 (10.0-20.0); CALCIUM 8.1 MG/DL (8.5-10.1); CHLORIDE 105 MMOL/L (99-107); CREATININE 1.11 MG/DL (0.60-1.10); GLUCOSE 108 MG/DL (70-104); MAGNESIUM 1.8 MG/DL (1.5-2.4); PHOSPHORUS 3.1 MG/DL (2.3-4.5); POTASSIUM 4.2 MMOL/L (3.5-5.1); SODIUM 138 MMOL/L (135-145); TOTAL CARBON DIOXIDE 26.9 MMOL/L (24-32); eCRCL 57 ML/MIN; eGFR 66 ML/MIN
[2024-07-06] MEDS: furosemide 40mg/4ml inj IV ONE (09:44)
[2024-07-07] VITALS (8 sets, daily range): BP systolic 116–139; BP diastolic 73–89; PULSE 73–95; RESP 16–21; TEMP 97.2–98.7; O2SAT 92–96
[2024-07-07 07:04] LABS: BASOPHILS % (AUTO) 0.1 % (0-1); EOSINOPHILS # (AUTO) 0.1 X10'3 (0-0.9); EOSINOPHILS % (AUTO) 1.4 % (0-6); HEMATOCRIT 30.5 % (42.0-52.0); HEMOGLOBIN 10.4 g/dl (14.0-17.9); LYMPHOCYTES # (AUTO) 1.3 X10'3 (1.1-4.8); LYMPHOCYTES % (AUTO) 13.5 % (21-51); MEAN CORPUSCULAR HEMOGLOBIN 31.8 PG (27.0-31.0); MEAN CORPUSCULAR HGB CONC 34.2 g/dL (33.0-36.5); MEAN CORPUSCULAR VOLUME 92.8 FL (78-98); MEAN PLATELET VOLUME 11.3 FL (7.4-10.4); MONOCYTES % (AUTO) 10.1 % (2-12); NEUTROPHILS # (AUTO) 7.2 X10'3 (1.8-7.7); NEUTROPHILS % (AUTO) 74.9 % (42-75); PLATELET COUNT 103 X10'3 (140-440); RED BLOOD COUNT 3.29 X10'6 (4.70-6.10); RED CELL DISTRIBUTION WIDTH 14.4 % (11.5-14.5); WHITE BLOOD COUNT 9.7 X10'3 (4.5-11.0)
[2024-07-07 07:20] LABS: ALBUMIN 2.6 G/DL (3.4-5.0); ANION GAP 4 (8-16); BLOOD UREA NITROGEN 27 MG/DL (7-18); BUN/CREATININE RATIO 26.7 (10.0-20.0); CALCIUM 8.1 MG/DL (8.5-10.1); CHLORIDE 105 MMOL/L (99-107); CREATININE 1.01 MG/DL (0.60-1.10); GLUCOSE 107 MG/DL (70-104); MAGNESIUM 1.6 MG/DL (1.5-2.4); POTASSIUM 3.5 MMOL/L (3.5-5.1); SODIUM 138 MMOL/L (135-145); TOTAL CARBON DIOXIDE 28.7 MMOL/L (24-32); eCRCL 62 ML/MIN; eGFR 73 ML/MIN
[2024-07-07 10:28] LABS: BURR CELLS 2+; LARGE PLATELETS MODERATE; PLATELET ESTIMATE DECREASED
[2024-07-07 10:29] LABS: ELLIPTOCYTES FEW
[2024-07-07] MEDS: apixaban 5mg tablet PO SCH (11:18)
[2024-07-07 11:29] LABS: ALBUMIN 2.8 G/DL (3.4-5.0); ANION GAP 4 (8-16); BLOOD UREA NITROGEN 29 MG/DL (7-18); BUN/CREATININE RATIO 25.4 (10.0-20.0); CHLORIDE 103 MMOL/L (99-107); CREATININE 1.14 MG/DL (0.60-1.10); GLUCOSE 238 MG/DL (70-104); SODIUM 136 MMOL/L (135-145); TOTAL CARBON DIOXIDE 28.9 MMOL/L (24-32); eCRCL 55 ML/MIN; eGFR 64 ML/MIN
[2024-07-07] MEDS: amiodarone 200mg tablet PO SCH (20:13)
[2024-07-08 02:00] VITALS: BP 108/62; PULSE 72; RESP 18; TEMP 97.7; O2SAT 94
[2024-07-08 06:00] VITALS: BP 120/66; PULSE 96; RESP 20; TEMP 97.8; O2SAT 94
[2024-07-08 06:45] LABS: ALBUMIN 2.6 G/DL (3.4-5.0); ANION GAP 6 (8-16); BLOOD UREA NITROGEN 27 MG/DL (7-18); BUN/CREATININE RATIO 30.7 (10.0-20.0); CALCIUM 8.1 MG/DL (8.5-10.1); CHLORIDE 103 MMOL/L (99-107); CREATININE 0.88 MG/DL (0.60-1.10); GLUCOSE 116 MG/DL (70-104); MAGNESIUM 1.6 MG/DL (1.5-2.4); POTASSIUM 3.5 MMOL/L (3.5-5.1); SODIUM 138 MMOL/L (135-145); TOTAL CARBON DIOXIDE 28.7 MMOL/L (24-32); eCRCL 71 ML/MIN; eGFR 86 ML/MIN
[2024-07-08 07:00] VITALS: RESP 20; O2SAT 94
[2024-07-08] MEDS ORDERED: HYDR-3972 PO (07:04)
[2024-07-08] MEDS ORDERED: LOP12.5T PO (07:04)
[2024-07-08] MEDS ORDERED: ASPI81TA53 PO (07:04)
[2024-07-08] MEDS ORDERED: AMI200T PO (07:04)
[2024-07-08 08:09] VITALS: BP_SYST 120; PULSE 96
== END 2024-07-08 11:55 | disposition home or self-care (01) | DRG 219 ==
LOC: PAS IN 05:34 → CICU 2S 09:15 → PCU 3S 07-05 15:30
PROVIDERS: ADMIT Thoracic Surgery (Cardiothoracic Vascular Surgery); ATTEND Thoracic Surgery (Cardiothoracic Vascular Surgery)
PROC: 02RF08Z Replacement of Aortic Valve with Zooplastic Tissue, Open Approach (ICD-10-PCS; 2024-07-03)
PROC: 021109W Bypass Coronary Artery, Two Arteries from Aorta with Autologous Venous Tissue, Open Approach (ICD-10-PCS; 2024-07-03)
PROC: 06BP4ZZ Excision of Right Saphenous Vein, Percutaneous Endoscopic Approach (ICD-10-PCS; 2024-07-03)
PROC: 5A1221Z Performance of Cardiac Output, Continuous (ICD-10-PCS; 2024-07-03)
PROC: B24BZZ4 Ultrasonography of Heart with Aorta, Transesophageal (ICD-10-PCS; 2024-07-03)
PROC: 02L70CK Occlusion of Left Atrial Appendage with Extraluminal Device, Open Approach (ICD-10-PCS; 2024-07-03)
PROC: 02100Z9 Bypass Coronary Artery, One Artery from Left Internal Mammary, Open Approach (ICD-10-PCS; principal; 2024-07-03 08:02)
DX: I35.0 Nonrheumatic aortic (valve) stenosis (principal); J96.90 Respiratory failure, unspecified, unspecified whether with hypoxia or hypercapnia; I48.20 Chronic atrial fibrillation, unspecified; I25.10 Atherosclerotic heart disease of native coronary artery without angina pectoris; D64.9 Anemia, unspecified; E11.9 Type 2 diabetes mellitus without complications; I10 Essential (primary) hypertension; D75.1 Secondary polycythemia; E78.5 Hyperlipidemia, unspecified; I25.2 Old myocardial infarction; Z79.01 Long term (current) use of anticoagulants
CPT/HCPCS: 93312; 93325; Z7506; Z7508; 36415; 36600; 71045; 71046; 76376; 80048; 80053; 81001; 82330; 82435; 82803; 82947; 82948; 83036; 83735; 84100; 84132; 84295; 85008; 85018; 85025; 85347; 85610; 85730; 86885; 86900; 86901; 86920; 87070; 87081; 88300; 92508; 92616; 93005; 93880; 93970; 94002; 94010; 94760; 97116; 97161; 97530; A4333; A4615; A4618; A4620; A6213; A6258; A6446; A6449; A7000; A7048; C1751; G0378; J0171; J0282; J0690; J1250; J1644; J1815; J1940; J2060; J2150; J2250; J2270; J2704; J2720; J2919; J3370; J3475; J3480; J3490; J7030; J7040; J7050; J7060; J7120; P9045; P9047

== ENCOUNTER → 2024-07-24 | Day surgery (SDC) | payer BC, MEDICARE ==
[~2024-07-24] MED LIST changes: +ALBU18HF2 INH; +AMI200T PO; +ASPI-1265 PO; +ASPI81TA53 PO; -BISO10TA16 PO; +FURO-150 PO; +HYDR-3965 PO; +HYDR-3972 PO; -Insulin Reg/NS 100units/100mL 100 ML IV SCH; +LOP12.5T PO; -LORazepam 2 mg/ml vial IV PRN; +METO25TA6 PO; +POTA-206 PO; +POTA-207 PO; -SACU1TAB PO; -dextrose 50%-water 50ml dispensing syringe IV PRN; -insulin glargine (Lantus) pen - multi-dose SQ PRN
[2024-07-24 13:28] VITALS: BP 142/88; PULSE 99; RESP 16; O2SAT 97
[2024-07-24 13:55] VITALS: BP 131/95; PULSE 89; PULSE 93; RESP 14; RESP 15; O2SAT 97; O2SAT 98
[2024-07-24 14:10] VITALS: BP 142/88; PULSE 77; RESP 14; O2SAT 98
[2024-07-24 14:25] VITALS: BP 145/83; PULSE 85; RESP 14; O2SAT 96
[2024-07-24 14:40] VITALS: BP 135/90; PULSE 85; RESP 14; O2SAT 97
[2024-07-24 14:55] VITALS: BP 143/88; PULSE 89; RESP 14; O2SAT 97
== END | disposition home or self-care (01) ==
LOC: CARD DIAG 09:41 → SSTAY O 11:23
PROVIDERS: ATTEND Thoracic Surgery (Cardiothoracic Vascular Surgery)
DX: J90 Pleural effusion, not elsewhere classified (principal); I08.1 Rheumatic disorders of both mitral and tricuspid valves; Z95.4 Presence of other heart-valve replacement
CPT/HCPCS: 32555; 71046; 93306; C1729

== ENCOUNTER 2024-09-17 09:42 | Day surgery (SDC) | payer BC, MEDICARE ==
[2024-09-17] VITALS (11 sets, daily range): BP systolic 96–132; BP diastolic 64–90; PULSE 61–75; RESP 11–18; TEMP 97.2; O2SAT 94–99
[~2024-09-17] VITALS: Ht 167.6 cm; Wt 71.4 kg
[~2024-09-17 09:42] MED LIST changes: -ASPI81TA53 PO; -HYDR-3972 PO; -LOP12.5T PO; -MAGN400C PO
[2024-09-17] MEDS ORDERED: MAGN400T56 PO (10:09)
[2024-09-17] MEDS ORDERED: METF-437 PO (10:09)
[2024-09-17] MEDS ORDERED: SACU1TAB7 PO (10:09)
[2024-09-17 10:40] LABS: BASOPHILS # (AUTO) 0.1 X10'3 (0-0.2); BASOPHILS % (AUTO) 0.9 % (0-1); EOSINOPHILS # (AUTO) 0.3 X10'3 (0-0.9); EOSINOPHILS % (AUTO) 3.7 % (0-6); HEMATOCRIT 43.5 % (42.0-52.0); HEMOGLOBIN 14.3 g/dl (14.0-17.9); LYMPHOCYTES # (AUTO) 1.4 X10'3 (1.1-4.8); MEAN CORPUSCULAR HEMOGLOBIN 28.7 PG (27.0-31.0); MEAN CORPUSCULAR VOLUME 87.1 FL (78-98); MONOCYTES # (AUTO) 0.8 X10'3 (0-0.9); MONOCYTES % (AUTO) 11.1 % (2-12); NEUTROPHILS # (AUTO) 4.3 X10'3 (1.8-7.7); NEUTROPHILS % (AUTO) 63.3 % (42-75); PLATELET COUNT 247 X10'3 (140-440); RED BLOOD COUNT 4.99 X10'6 (4.70-6.10); WHITE BLOOD COUNT 6.8 X10'3 (4.5-11.0)
[2024-09-17 10:47] LABS: APTT 29 SECONDS (22-32); INR 1.1 INR; PROTHROMBIN TIME 11.7 SECONDS (9.0-12.0)
[2024-09-17 10:48] LABS: ALBUMIN 3.6 G/DL (3.4-5.0); ANION GAP 9 (8-16); BLOOD UREA NITROGEN 17 MG/DL (7-18); BUN/CREATININE RATIO 13.1 (10.0-20.0); CALCIUM 8.7 MG/DL (8.5-10.1); CHLORIDE 105 MMOL/L (99-107); CHOL/HDL RATIO 2.5 (0.00-4.99); CHOLESTEROL 133 MG/DL (0-200); GLUCOSE 148 MG/DL (70-104); HDL CHOLESTEROL 53 MG/DL (35-60); LDL CHOLESTEROL 65 MG/DL (50-100); SODIUM 139 MMOL/L (135-145); TOTAL CARBON DIOXIDE 24.7 MMOL/L (24-32); TRIGLYCERIDES 114 MG/DL (20-135); eGFR 55 ML/MIN
[2024-09-17] MEDS: fentaNYL/PF 50MCG/1 ML 2ML syringe IV ONE (13:20)
[2024-09-17] MEDS: MIDAZolam 1mg/ml 10ml vial IV ONE (13:20)
[2024-09-17] MEDS: normal saline 1000ml 1,000 ML IV SCH (13:21)
== END 2024-09-17 14:50 | disposition home or self-care (01) ==
LOC: SSTAY O 09:42
PROVIDERS: ATTEND Student in an Organized Health Care Education/Training Program
DX: I48.91 Unspecified atrial fibrillation (principal); I25.2 Old myocardial infarction; R94.31 Abnormal electrocardiogram [ECG] [EKG]; I11.0 Hypertensive heart disease with heart failure; I50.9 Heart failure, unspecified; I25.10 Atherosclerotic heart disease of native coronary artery without angina pectoris; E11.9 Type 2 diabetes mellitus without complications; E78.00 Pure hypercholesterolemia, unspecified; I35.0 Nonrheumatic aortic (valve) stenosis; Z79.01 Long term (current) use of anticoagulants; Z79.82 Long term (current) use of aspirin; Z79.84 Long term (current) use of oral hypoglycemic drugs; Z79.891 Long term (current) use of opiate analgesic; Z79.899 Other long term (current) drug therapy; Z95.1 Presence of aortocoronary bypass graft
CPT/HCPCS: 36415; 80048; 80061; 82948; 85025; 85610; 85730; 92960; 93005; J2250; J3010; J7030